=== PATIENT | female | born 1945 | race Caucasian/White ===

== ENCOUNTER 2020-01-28 09:43 | Emergency (ER) | payer MEDICARE, OTHER ==
[~2020-01-28] VITALS: Ht 162.6 cm; Wt 85.5 kg
[2020-01-28] MEDS ORDERED: INCRUSE ELLI62.5 MCG IH (10:11)
[2020-01-28] MEDS ORDERED: ZYRTEC10 M5 PO (10:12)
[2020-01-28] MEDS ORDERED: CLOBETASOL EMOL15 GM TOP (10:13)
[2020-01-28] MEDS ORDERED: NYSTATIN15 G3 TOP (10:13)
[2020-01-28] MEDS ORDERED: CELEXA 20 MG TA20 MG PO (10:14)
[2020-01-28] MEDS ORDERED: AZELASTINE205.5 MCG/ NARES (10:14)
[2020-01-28] MEDS ORDERED: ASA81BEC PO (10:14)
[2020-01-28] MEDS ORDERED: COLESTIPOL HCL1 G1 PO (10:15)
[2020-01-28] MEDS ORDERED: FLONASE 0.05%50 MCG NARES (10:16)
[2020-01-28] MEDS ORDERED: VENTOLIN HFA 1818 GM INH (10:16)
[2020-01-28] MEDS ORDERED: PEPCID AC10 MG PO (10:17)
[2020-01-28] MEDS ORDERED: VOLTAREN GEL 1100 G1 TOP (10:18)
[2020-01-28] MEDS ORDERED: DULERA 100 MCG/13 GM INH (10:18)
[2020-01-28] MEDS ORDERED: TOPROL XL25 MG PO (10:19)
[2020-01-28] MEDS ORDERED: NORCO 5-325 TA1 EAC1 PO (10:33)
[2020-01-28 10:54] VITALS: BP 132/81
== END 2020-01-28 10:55 | disposition home or self-care (01) ==
LOC: M.ERS 09:43
DX: S93.692A Other sprain of left foot, initial encounter (principal); I10 Essential (primary) hypertension; F17.200 Nicotine dependence, unspecified, uncomplicated; Z88.1 Allergy status to other antibiotic agents; Z88.8 Allergy status to other drugs, medicaments and biological substances; Z96.653 Presence of artificial knee joint, bilateral; W45.8XXA Other foreign body or object entering through skin, initial encounter; Y93.89 Activity, other specified; Y92.89 Other specified places as the place of occurrence of the external cause; Y99.8 Other external cause status